=== PATIENT | male | born 1940 ===

== ENCOUNTER 2016-06-13 09:00 | Outpatient (RCR) | payer BC ==
--- NOTE | 2016-06-14 08:28 | Consultation ---
DATE OF CONSULTATION: 06/13/16 HYPERBARIC OXYGEN CONSULTATION: REASON FOR CONSULTATION: Failed flap HISTORY OF PRESENT ILLNESS: This is a 76-year-old male, who presents for evaluation. The patient is status post amputation right second toe. The patient underwent amputation due to history of peripheral vascular disease. The patient also did received IV antibiotics for total of four weeks. The patient is being followed by Podiatry. PAST MEDICAL HISTORY: Diabetes, hypertension, CVA, prior history of left fifth toe amputation as well as right second toe amputation. MEDICATIONS: Reviewed in detail. ALLERGIES: Reviewed. SOCIAL HISTORY: Nonsmoker and nondrinker. The patient is . PHYSICAL EXAMINATION: GENERAL: The patient is a well-developed male. VITAL SIGNS: reviewed HEENT: Negative. Oropharynx clear. LUNGS: Clear. CARDIAC: S1 and S2. Regular rate and rhythm. ABDOMEN: Soft. EXTREMITIES: Right foot with wound with moderate erythema and open wound. IMPRESSION: 1. Right foot failed flap 2. History of diabetes. 3. History of hypertension. 4. History of peripheral vascular disease. RECOMMENDATIONS: The patient appears to be a good candidate for hyperbaric oxygen. We will proceed with further treatments at 90-minute intervals, two atmospheres with ongoing wound care and close followup reassessment at that time for additional treatments. Care discussed with the patient and he is agreeable to proceed. Cheng Estrada M.D. DR: Britta JOB#: [id number] CC: ; Hyperbaric oxygen/ center [facility]
== END 2016-06-22 | disposition home or self-care (01) ==
LOC: WCC 09:00
DX: S98.131A Complete traumatic amputation of one right lesser toe, initial encounter (principal); T86.821 Skin graft (allograft) (autograft) failure; Z09 Encounter for follow-up examination after completed treatment for conditions other than malignant neoplasm; E11.42 Type 2 diabetes mellitus with diabetic polyneuropathy; X58.XXXA Exposure to other specified factors, initial encounter; Y93.9 Activity, unspecified; Y92.9 Unspecified place or not applicable; I51.9 Heart disease, unspecified; Z86.73 Personal history of transient ischemic attack (TIA), and cerebral infarction without residual deficits; I10 Essential (primary) hypertension; N28.9 Disorder of kidney and ureter, unspecified; Z79.82 Long term (current) use of aspirin; Z96.649 Presence of unspecified artificial hip joint; Z79.02 Long term (current) use of antithrombotics/antiplatelets
CPT/HCPCS: 82962; G0277; G0463

== ENCOUNTER 2016-06-25 08:00 | Outpatient (RCR) | payer BC | END 2016-07-22 | disposition home or self-care (01) | LOC: WCC 08:00 | DX: Z09 Encounter for follow-up examination after completed treatment for conditions other than malignant neoplasm (principal); T86.821 Skin graft (allograft) (autograft) failure; S98.131A Complete traumatic amputation of one right lesser toe, initial encounter; E11.42 Type 2 diabetes mellitus with diabetic polyneuropathy | CPT/HCPCS: 82962; G0277 ==

== ENCOUNTER 2016-07-23 08:00 | Outpatient (RCR) | payer BC | END 2016-08-22 | disposition home or self-care (01) | LOC: WCC 08:00 | DX: Z09 Encounter for follow-up examination after completed treatment for conditions other than malignant neoplasm (principal); S98.131A Complete traumatic amputation of one right lesser toe, initial encounter; E11.42 Type 2 diabetes mellitus with diabetic polyneuropathy; T86.821 Skin graft (allograft) (autograft) failure; Z96.649 Presence of unspecified artificial hip joint; Z89.422 Acquired absence of other left toe(s); Z89.421 Acquired absence of other right toe(s); I10 Essential (primary) hypertension; N28.9 Disorder of kidney and ureter, unspecified; Z86.73 Personal history of transient ischemic attack (TIA), and cerebral infarction without residual deficits; I51.9 Heart disease, unspecified; Z79.02 Long term (current) use of antithrombotics/antiplatelets | CPT/HCPCS: 82962; G0277 ==